=== PATIENT | female | born 1995 | race Caucasian/White ===

== ENCOUNTER 2022-06-02 14:29 | Outpatient (CLI) | payer BC, SELFPAY ==
--- NOTE | 2022-06-02 15:00 | CRLHL7_ITS ---
For Patients: As a result of the Century Cures Act, medical imaging exams and procedure reports are released immediately into your electronic medical record. You may view this report before your referring provider. If you have questions, please contact your health care provider. Indication: Bleeding in the setting of a first-trimester Technique: Transvaginal sonographic evaluation of the pelvis was performed Comparison: None Findings: The uterus is normal in size. There is a single live intrauterine . A crown-rump length measurement of 3 millimeters was noted corresponding to 5 weeks and 6 days and an estimated date of delivery of 01/27/2023. heart rate is 94 which is considered low normal for this early gestational age. Gestational sac size averages 1.8 centimeters and appears normal. There is a 3 millimeter yolk sac that appears normal. No visible implantation bleed or subchorionic hemorrhage. The ovaries are normal size. There is no adnexal mass. The right ovary measures 4.0 x 1.9 x 1.7 centimeters and the left ovary measures 2.3 x 1.0 x 1.5 centimeters. No significant free fluid Impression: 1. Single live intrauterine gestation of 5 weeks and 6 days. Low normal heart rate for this gestational age at 94 beats per minute. 2. No evidence implantation bleed or subchorionic hemorrhage. 3. No adnexal mass or free fluid in the cul-de-sac Dictated by Harjit Pearce MD @ 06/02/2022 3:45:40 PM (Electronically Signed)
== END 2022-06-02 14:30 | disposition home or self-care (01) ==
PROVIDERS: Visit Provider Obstetrics & Gynecology
DX: O20.9 Hemorrhage in early pregnancy, unspecified (principal)
CPT/HCPCS: 76817; 80053; 82150; 83690; 83735; 87086

== ENCOUNTER 2022-06-16 12:45 | Outpatient (CLI) | payer BC, SELFPAY ==
--- NOTE | 2022-06-16 13:00 | CRLHL7_ITS ---
For Patients: As a result of the Century Cures Act, medical imaging exams and procedure reports are released immediately into your electronic medical record. You may view this report before your referring provider. If you have questions, please contact your health care provider. INDICATION: First trimester scan, establish dates. COMPARISON: None. TECHNIQUE: Real-time ross-scale imaging of the pelvis was performed. FINDINGS: Sonographic imaging demonstrates a single living intrauterine gestation. The embryo demonstrates a regular cardiac rate measuring 169 beats per minute. The embryo`s crown-rump length measurement of 1.6 cm corresponds to a gestational age of 8 weeks 0 days with a sonographic due date of 01/26/2023. There is a normal-appearing yolk sac. There are no gross abnormalities noted within the embryo at this early state of development. The gestational sac has a normal appearance. There is a 3.5 x 2.8 x 2.9 cm perigestational hemorrhage. The amount of fluid within the sac appears appropriate for gestational age. The cervix is closed. The myometrium appears normal. The ovaries are of normal size. Corpus luteal cyst right ovary. There are no suspicious fluid collections noted in the cul-de-sac. IMPRESSION: Single living intrauterine with sonographic gestational age 8 weeks 0 days and a sonographic due date 01/26/2023. Left fundal subchorionic hemorrhage measuring 3.5 x 2.8 x 2.9 cm. Dictated by Kadeem Paredes MD @ 06/16/2022 1:40:28 PM (Electronically Signed)
== END 2022-06-16 12:46 | disposition home or self-care (01) ==
PROVIDERS: Visit Provider Advanced Practice Midwife
DX: Z34.91 Encounter for supervision of normal pregnancy, unspecified, first trimester (principal); Z3A.08 8 weeks gestation of pregnancy
CPT/HCPCS: 76817; 84443; 86592; 86703; 86762; 86787; 86803; 86850; 86900; 86901; 87086; 87340; 87491; 87591

== ENCOUNTER 2022-09-08 07:12 | Outpatient (CLI) | payer BC, SELFPAY ==
--- NOTE | 2022-09-08 07:15 | CRLHL7_ITS ---
For Patients: As a result of the Century Cures Act, medical imaging exams and procedure reports are released immediately into your electronic medical record. You may view this report before your referring provider. If you have questions, please contact your health care provider. INDICATION: Evaluate anatomy. COMPARISON: 06/16/2022 TECHNIQUE: Real time ross scale imaging of the fetus was performed as well as color Doppler analysis of the umbilical vessels. FINDINGS: Sonographic imaging demonstrates a single living intrauterine gestation. Fetus demonstrates a regular cardiac rate of 144 beats per minute. Fetus has a variable position. The placenta lies posteriorly without evidence of placenta previa. The edge of the placenta is located 8.3 cm from the internal cervical os. Amniotic fluid volume appears normal. Single deepest vertical pocket: 4.4 cm. The cervix is closed and measures 5.3 cm in length. The composite ultrasound gestational age is calculated at 20 weeks 6 days with an estimated sonographic due date of 01/20/2023. The estimated weight is 390 grams which lies at the 92nd %. The following biometric measurements were obtained: Biparietal diameter: 4.8 cm/20 weeks 4 days 76th% Head circumference: 18.2 cm/20 weeks 4 days 70th% Abdominal circumference: 15.4 cm/20 weeks 4 days 63rd% Femur length: 3.6 cm/21 weeks 4 days 89th% The HC/AC ratio measures: 1.18 range (1.06-1.25) On anatomic survey, there is a normal appearance of the cerebral ventricles, cavum septi pellucidi, cisterna magna and cerebellum. The nose, lips, and facial profile appear normal. The cervical, thoracic and lumbar spine are well visualized and appear normal. Incomplete visualization of the heart views due to position. The diaphragm and stomach appear normal. The kidneys and bladder also appear normal. There is a normal three-vessel cord and cord insertion site. The four extremities appear normal. IMPRESSION: Concordance of clinical and sonographic dating. Incomplete visualization of the heart due to position. Short-term follow-up recommended. The remainder of the anatomic survey is normal. Dictated by Kadeem Paredes MD @ 09/08/2022 8:50:03 AM (Electronically Signed)
== END 2022-09-08 07:13 | disposition home or self-care (01) ==
LOC: US 07:13
PROVIDERS: Visit Provider Advanced Practice Midwife
DX: Z34.92 Encounter for supervision of normal pregnancy, unspecified, second trimester (principal); Z3A.20 20 weeks gestation of pregnancy
CPT/HCPCS: 76805

== ENCOUNTER 2022-09-22 15:01 | Outpatient (CLI) | payer BC, SELFPAY ==
--- NOTE | 2022-09-22 15:00 | CRLHL7_ITS ---
For Patients: As a result of the Century Cures Act, medical imaging exams and procedure reports are released immediately into your electronic medical record. You may view this report before your referring provider. If you have questions, please contact your health care provider. INDICATION: Suboptimal views of heart on the anatomy scan COMPARISON: 09/08/2022 TECHNIQUE: Real time ross scale imaging of the fetus was performed. FINDINGS: Sonographic imaging demonstrates a single living intrauterine gestation. Fetus demonstrates a regular cardiac rate of 145 beats per minute. Fetus has a variable position. The placenta lies posteriorly. Amniotic fluid volume appears normal. Single deepest vertical pocket: 5.5 cm. There is a normal four-chamber heart view and the left and right ventricular outflow tracts appear normal. IMPRESSION: Normal heart structures. Dictated by Kadeem Paredes MD @ 09/25/2022 10:30:00 AM (Electronically Signed)
== END 2022-09-22 15:02 | disposition home or self-care (01) ==
LOC: US 15:01
PROVIDERS: Visit Provider Physician Assistant
DX: Z34.90 Encounter for supervision of normal pregnancy, unspecified, unspecified trimester (principal)
CPT/HCPCS: 76816

== ENCOUNTER 2022-12-29 12:23 | Outpatient (CLI) | payer BC, SELFPAY ==
[2022-12-30 13:02] LABS: Strep B DNA Probe NEGATIVE (Negative)
[2022-12-30 13:13] LABS: Strep B Pen/Amox Allergy No
== END 2022-12-29 12:24 | disposition home or self-care (01) ==
LOC: NFLDREF 12:23
PROVIDERS: Visit Provider Advanced Practice Midwife
DX: Z34.83 Encounter for supervision of other normal pregnancy, third trimester (principal); Z3A.36 36 weeks gestation of pregnancy
CPT/HCPCS: 87081; 87653

== ENCOUNTER 2023-01-12 11:01 | Outpatient (CLI) | payer BC, SELFPAY | END 2023-01-12 11:02 | disposition home or self-care (01) | LOC: NFLDREF 01-13 08:28 | PROVIDERS: Visit Provider Advanced Practice Midwife | DX: Z34.83 Encounter for supervision of other normal pregnancy, third trimester (principal); Z3A.38 38 weeks gestation of pregnancy | CPT/HCPCS: 87086 ==

== ENCOUNTER 2023-01-28 23:20 | Inpatient (IN) | payer BC, SELFPAY ==
[2023-01-28 23:08] VITALS: BP 117/76; PULSE 87; PULSE 90; PULSE 91; TEMP 36.7; O2SAT 93; O2SAT 95
[2023-01-28 23:11] VITALS: BMI 36.0
[2023-01-29] VITALS (26 sets, daily range): BP systolic 90–154; BP diastolic 51–90; PULSE 76–106; RESP 16; TEMP 36.5–36.9; O2SAT 96–100
--- NOTE | 2023-01-29 01:23 | P.LDBA_ITS ---
Subjective History of Present Illness Time Seen by Provider: : Date Seen: 01/29/23 Narrative: Patient is being admitted to Labor and Delivery for active labor. She is a 27 year old at weeks gestation. Her full history and physical was dictated by Beronica Fierro CNM on 01/12/23. Please see this for details. Ashley has been thuan throughout the weekend. They increased in frequency around 1900 last night. She denies leaking fluids or bleeding and has been appreciating good movement. She is anxious on my arrival and has changed in dilation to 6cm. She is in the tub but requesting an epidural. Will place IV and prepare for an epidural. Wants to continue to labor in the tub until anesthesia arrives. She is using nitrous as well. 1. Nausea & Vomiting daily, continue to take Zofran and Phenergan (declines having) as prescribed. Knows to be seen if symptoms worsen. IV fluids received 07/17/22. Reglan script sent. resolved 2. Family history of thyroid disease: TSH 1.660 3. Varicella non-immune Recommend vaccine pp 4. Anxiety- starting to increase slightly at 34wks. Had lots of anxiety in the last weeks of . She may want an IOL around 40 weeks. OB - Problem Based A/P Additional Plan (1) Active labor at term: Status: Acute (2) Pain during labor: Status: Acute (3) Anxiety: Problem details: In high school, has resolved now Increased towards the end of Status: Acute Plan ASSESSMENT:? at 40.3 weeks gestation? GBS negative? Uncomplicated ? ?? PLAN:? 1. Desires water . Consent signed. Hep C negative.? 2. Candidate for analgesia of choice. Planning unmedicated .? 3. Anticipate ? 4. Expectant management at this time.? 5. IV in place if condition changes. 6. Intermittent auscultation after a reactive tracing is obtained.monitoring plan? ? Delivery/Labor/Induction Plan Plan: expectant management OB Result Labs Blood Type: A (+) positive GBS Status: negative OB Exam Physical Exam Vital signs: Temp Pulse Resp BP Pulse Ox 98.1 F 100 16 119/74 95 01/28/23 23:08 01/29/23 01:20 01/29/23 01:20 01/29/23 01:20 01/28/23 23:08 Narrative: Psychiatric:? Alert and oriented x3? HEENT:? Normocephalic, atraumatic? Neck:? Supple without adenopathy or thyromegaly? Lungs:? Clear to auscultation bilaterally? Heart:? Regular rate and rhythm, no murmur, rub or gallop? Abdomen:? Soft, nontender, and gravid? Extremities:? No edema or erythema?Psychiatric:? Alert and oriented x3? Detailed Labor and Delivery Exam Patient Gravid: Yes Dilation (cm): 4 (per RN exam on admit) Effacement (%): 70 Contraction Frequency: Q 2-5 min Tachysystole: No Contraction intensity: Strong/Firm Fetus (Single) Station: -2 Amniotic Membrane Status: intact Heart Rate Baseline: 150 Monitor Accelerations: Present Monitor Decelerations: None Care Home Variability: Moderate (6-25)
[2023-01-29] MEDS: ONDANSETRON 2 MG/ML inj 4 MG IV (01:46)
[2023-01-29] MEDS: LACTATED RINGERS 1000 ML 1,000 ML 925 ML IV (01:46)
[2023-01-29] MEDS: fentaNYL 100 MCG/2 ML inj 30 MCG INTRATHECA (02:25)
--- NOTE | 2023-01-29 02:29 | P.ANBPRC_ITS ---
[facility] Medical History (Updated 01/29/23 @ 02:18 by Falguni Fierro CNM) Anxiety ?F41.9 - Anxiety disorder, unspecified (ICD-10) History of depression ?Z86.59 - Personal history of other mental and behavioral disorders (ICD-10) Migraines ?G43.909 - Migraine, unspecified, not intractable, without status migrainosus (ICD-10) Surgical History History of tonsillectomy and adenoidectomy ?Z90.89 - Acquired absence of other organs (ICD-10) Previous back surgery ?Z98.890 - Other specified postprocedural states (ICD-10) Family History Sister Bleeding disorder Seizure disorder Mother Thyroid disease Maternal Grandmother Ovarian cancer Uterine cancer Other Diabetes Social History What is your current living situation?: I presently have a place to live Problems where you live: no known problems In the past 12 months, utilities in danger of being shut off: no In the past 12 mos, have been you worried that your food would run out before you had money to buy more?: never true In the past 12 mos, the food you bought just didn't last and you didn't have money to buy more?: never true Smoking Status: Never smoker How often does anyone, including family, friends and others, physically hurt you : never How often does anyone, including family, friends and others, insult or talk down to you: never How often does anyone, including family, friends and others, threaten you with harm: never How often does anyone, including family, friends and others, scream or curse at you: never Little interest or pleasure in doing things: not at all Feeling down, depressed, or hopeless: not at all Meds Home Medications and Allergies Home Medications Medication Instructions Recorded Confirmed Type [id number] 120 mcg-dha 25 tab PO 06/02/22 01/26/23 History mg-herb no.293 66.7 mg chew tablet (Alive Premium ) Allergies Allergy/AdvReac Type Severity Reaction Status Date / Time codeine AdvReac Severe Agitated Verified 01/26/23 11:57 gabapentin AdvReac Severe Suicidal Verified 01/26/23 11:57 morphine AdvReac Severe Agitated Verified 01/26/23 11:57 Results Vital Signs Vital Signs: Last Vital Signs Temp 98.1 F 01/28/23 23:08 Pulse 83 01/29/23 02:26 Resp 16 01/29/23 01:20 BP 131/83 01/29/23 02:26 Pulse Ox 99 01/29/23 02:15 Weight: 104.326 kg Height: 170.18 cm Anesthesia Procedures Intrathecal Patient Location: OB Start Time: 02:00 Stop Time: 02:30 Start Date: 01/29/23 Stop Date: 01/29/23 Reason for Block: procedure for pain Patient Position: sitting Performed By: Juan Jose Aguirre Preanesthetic Checklist: risks and benefits discussed, monitors and equipment checked, pre-op evaluation, timeout performed and anesthesia consent Prep: chlorhexidine gluconate Monitoring: blood pressure monitoring, continuous pulse oximetry and heart rate Approach: midline Vertebral Space: lumbar (1-5) Needle Type: Pencan Injection Technique: single-shot (9mg kit marcaine, 30 mcg fentanyl) Needle gauge: 25
[2023-01-29] MEDS: PHENYLEPHRINE 100 MCG/ML SYRINGE IVP (02:39)
[2023-01-29] MEDS: OXYTOCIN 30 unit/500 ML in NS 30 UNIT/500 ML BAG 300 UNIT IVPB (02:48)
--- NOTE | 2023-01-29 03:12 | W.PM.OBVAGDE ---
OB Procedure Vag Delivery Mother Details Mother Details: The patient is a 27 year-old, 4, Para 1, admitted on 01/28/23 at 40.3Days gestation. Patient was admitted for active labor and progressed normally. She did labor in the tub but stared to experience increased anxiety and requested an epidural. She continued to labor in the tub until anesthesia arrived. AROM noted at 0229 with clear fluid. Patient was complete at 0235 and pushing at 0235. of a viable male at 0241 in left tilt in the bed with an adequate epidural. Vertex delivered OA. No nuchal cord or shoulder. Body delivered easily and without incident. Maria Elena pushed for only 6 minutes and in 2 contractions. Baby was caught by the RN with the CNM at the bedside as the CNM was not gloved at the time of delivery. CNM did observe before delivery on the body that there was not a nuchal cord. Infant passed to mothers abdomen with a vigorous cry. Cord was clamped and cut at > 5 minutes. APGARS were 8 at one minute and 8 at five minutes respectively. Mouth was bulb suctioned. Intact placenta with a 3 vessel cord delivered spontaneously at 0245. Fundus firm. 2nd degree identified and repaired in typical fashion. QBL 550 cc. Mother and baby stable; mother plans to breastfeed. Infant weight pending.? : 4 Para: 2 Weeks Gestation: 40.3 Admission Date: 01/28/23 Additional Details Amniotic Membrane Status: intact Amniotic Membrane Rupture Date: 01/29/23 Amniotic Membrane Rupture Time: 02:29 Amniotic Membrane Fluid Description: Clear Analgesia/Anesthesia Type: Epidural Waterbirth: No Pitcoin: Yes (after delivery only) Intrapartal Events: Labor Augmentation (AROM per pt request) and Precipitous Labor <3 Hrs Delivery augmentation: rupture of membranes Labor Onset: 01:00 Complete: 02:35 Pushin:35 Heart: heart tones during second stage were category 2. Variable and prolonged deceleration to the 90's were noted. She did have IV fluids running at the time. Position changes did not change FHR. Baby had a fast descent which was the likely cause. Good variability throughout and there was a return to a baseline of 110-120 at the end of pushing. Delivery Details Delivery Date: 01/29/23 Delivery Time: 02:41 Route of delivery: Gender: Male Infant Viability: Alive; Heart Rate Present Position at Delivery: OA Delivery Details: Delivered over [intact perineum] via [spontaneous] vaginal delivery. Infant was placed on maternal abdomen.? 1 Minute Interval Total Score: 8 5 Minute Interval Total Score: 8 Additional Details Shoulder Dystocia: No Placenta Delivery Time: 02:46 Placental Delivery Description: Spontaneous Delivery repair: Vicryl Procedure Done: Global Blood Loss: 550 Laceration: Perineal - 2nd Degree Episiotomy Description: None Blood Loss Measurement Type: QBL Bakri Used: No Sponge/Need Count Correct: Yes Cord Vessel Description: 3 Vessels (marginal cord insertion) Event Summary Status: Mother and were stable after delivery. Disposition: floor
[2023-01-29] MEDS: IBUPROFEN 600 MG TABLET PO ×2 (09:19→17:42)
[2023-01-29] MEDS: DOCUSATE SODIUM 100 MG CAPSULE PO (09:20)
[2023-01-29] MEDS: ACETAMINOPHEN 500 MG TABLET 1000 MG PO ×2 (14:15→22:01)
[2023-01-30 01:28] VITALS: BP 82/48; PULSE 77; RESP 14; TEMP 36.8; O2SAT 96
[2023-01-30] MEDS: IBUPROFEN 600 MG TABLET PO (05:23)
--- NOTE | 2023-01-30 07:46 | PM.OBDSVD1 ---
DS: Providers Provider Date Seen: 01/30/23 Date of admission: 01/28/23 23:20 Primary care physician: Not a Local Provider Admitting Clinician: Falguni Fierro CNM Attending Physician on discharge: Falguni Fierro CNM Date of Discharge: 01/30/23 DS: Diagnosis Discharge Diagnosis (1) care following vaginal delivery: Status: Acute (2) Lactating mother: Status: Acute (3) Anxiety: Status: Acute Problem details: In high school, has resolved now Increased towards the end of Exam Narrative: Exam Narrative: GENERAL APPEARANCE:? normal affect, alert, no distress? MOOD:? appropriate? CHEST:? clear to auscultation and percussion? HEART:? regular rate and rhythm? ABDOMEN:? soft, non-tender the uterine fundus is 1 cm Below Umbilicus, Midline and is appropriate for the stage of recovery. ? PERINEUM:? mild edema of the perineum, there is a 2nd degree that is healing well.? EXTREMITIES:? normal and no edema? Patient has no complaints? No active bleeding?? Doing well? She is requesting discharge home.? Const: Vital Signs, click to edit/add: Vital Signs - 24 hr 01/29/23 09:00 01/29/23 12:00 01/29/23 16:15 Temperature 97.7 F 98.4 F 97.9 F Pulse Rate [Pulse Oximeter] 94 90 93 Respiratory Rate 16 16 16 Blood Pressure [Le ft Arm] 107/69 103/64 106/71 Pulse Oximetry 96 97 Oxygen Delivery Me thod Room Air Room Air Room Air 01/29/23 20:22 01/30/23 01:28 Temperature 98.2 F 98.3 F Pulse Rate [Pulse Oximeter] 81 77 Respiratory Rate 16 14 Blood Pressure [Le ft Arm] 112/70 82/48 L Pulse Oximetry 96 96 Oxygen Delivery Me thod Room Air Room Air Documenting provider has reviewed patient's vital signs: yes OB - DS: Summary Hospital Course Hospital Course: Patient is a 27year old, G 4 now P 2? admitted on 01/28/23 at 40 Weeks, 2 Days gestation for active labor.? She had an uncomplicated vaginal delivery.? She delivered a viable male .? She is breast feeding and reports things are well.? the patient has done well.? Her pain is well controlled with current medications.? She has no new complaints.? Vitals have been stable. She has remained afebrile. She is voiding without difficulty. She is passing gas and has not had a bowel movement. She is ambulating and denies any dizziness. She is unsure what she is planning for control but she would like to avoid hormones as she has not tolerated them well in the past. She is considering condoms or Caya. She has a history of anxiety and she is worried about this again as she has had an increase in anxiety at the end of . She has use Sertraline in the past and would like to get started on this at this time.??? Peripartum Data delivery method: Vaginal Laceration description: Perineal - 2nd Degree Episiotomy description: None complications: none Gender: Male Infant Discharge Plan: Home Status at Discharge Functional status at discharge: independent ambulation Overall status at discharge: patient is progressing back to baseline Time Spent with Patient Time attestation: Total time spent providing and/or coordinating discharge services: Discharge Plan Discharge Disposition: Home, Self-Care Date of Admission: 01/28/23 23:20 Attending Provider on Discharge: Falguni Fierro Primary Care Provider: Provider,Not a Local Condition: Stable Anticipated Discharge Date/Time: 01/30/23 10:00 Discharge Medications: New docusate sodium 100 mg Capsule 100 mg PO DAILY Qty: 60 0RF Rx Instructions: Take 1-2 tablets daily as needed for constipation. ibuprofen 600 mg Tablet 600 mg PO Q6H PRNQty: 60 0RF sertraline 25 mg tablet 25 mg PO DAILY Qty: 120 2RF Rx Instructions: Take 1 tablet (25mg) or 1 week. You can increase to 2 tablets (50mg) after that if needed. Continued Alive Premium 120 mcg-25 mg- 66.7 mg tablet,chewable PO Discharge Orders: Discharge Order (Routine); Ordered 01/30/23 Ordered By: Falguni Fierro Additional Instructions: Discharge instructions were reviewed with the patient including signs and symptoms of infection and home going medications.? Lifting Restrictions: 20 pounds for 6? weeks? ?? Do not drive while taking narcotic pain meds.? Off Work or School for 6 weeks.? ?? Symptoms to report to doctor:? -Bleeding that saturates more than one pad per hour? -Passing clots larger than the size of a golf ball? -Pain not relieved by prescribed medication? -Fever above 100.4 degrees Fahrenheit? -A foul vaginal odor? -Difficulty in emotions, mood and functions? -Thoughts of hurting yourself and/or ? -Painful, reddened area in your breast? -Any drainage, redness or tenderness in your IV/epidural site? -Severe headache that doesn't improve after taking medications? -Changes in vision, including temporary loss of vision, blurred vision, and/or light sensitivity? -Upper abdominal pain (usually under ribs on the right side)? -Decrease in urination or painful, frequent urinating? -Chest pain? -Shortness of breath? -Tenderness or pain with redness and/swelling in the calf(s) of your leg? ?? Follow Up in clinic in 2 and 6 weeks.? ?? consultation services are available to all mothers and babies for the first year after delivery.? To make an appointment, please call [phone].? Activity Level: Activity as Tolerated Discharge Diet: Regular Follow Up Appointments: Provider,Not a Local [Primary Care Provider] - [facility] [Provider Group] Forms: MyHealth Info Instructions
[2023-01-30 07:52] VITALS: BP 103/71; PULSE 90; RESP 16; TEMP 36.7; O2SAT 97
[2023-01-30 07:54] VITALS: TEMP 36.6
[2023-01-30] MEDS: ACETAMINOPHEN 500 MG TABLET 1000 MG PO (07:54)
[2023-01-30] MEDS: DOCUSATE SODIUM 100 MG CAPSULE PO (07:54)
== END 2023-01-30 12:45 | disposition home or self-care (01) | DRG 560 ==
LOC: OB OUT 01-29 01:44 → OB 01-29 01:44
PROVIDERS: Admitting Provider Advanced Practice Midwife; Visit Provider Advanced Practice Midwife
DX: O99.344 Other mental disorders complicating childbirth (principal); F41.9 Anxiety disorder, unspecified; O70.1 Second degree perineal laceration during delivery; O76 Abnormality in fetal heart rate and rhythm complicating labor and delivery; Z3A.40 40 weeks gestation of pregnancy; Z37.0 Single live birth
CPT/HCPCS: 1967; 99213; A9270; J2371; J2405; J3010; J7120

== ENCOUNTER 2023-05-28 11:13 | Emergency (ER) | payer BC, SELFPAY ==
[2023-05-28 11:16] VITALS: BP 111/78; PULSE 81; TEMP 36; O2SAT 95; BMI 31.3
--- NOTE | 2023-05-28 11:49 | ED_ITS ---
HPI - General Adult General Time Seen by Provider: 11:50 Date Seen: 05/28/23 Chief complaint: Unspecified Complaint, Adult Stated complaint: painful cyst on buttock Time Seen by Provider: 05/28/23 11:21 Source: patient Mode of arrival: ambulatory Limitations: no limitations History of Present Illness HPI narrative: Patient presents with two painful cysts in her right and left gluteal clefts. She started noticing the pain over the weekend, but notes it has progressively increased. Rates her pain as 7/10 when she is sitting on her buttocks. Her pain alleviates when she is standing. The pain is localized and does not seem to radiate elsewhere. She denies any fevers, chills, fatigue, or weakness. Patient has been taking ibuprofen with little relief. She has also tried witch Gillian pads and heating pads with little to no relief. Patient does have a history of hemorrhoids, but denies any bowel changes over the past few days. Of note, patient has a history of back surgery, what she thinks to be a partial laminectomy at T12; however she is unsure. Related Data Home Medications Medication Instructions Recorded Confirmed [id number] 120 mcg-dha 25 tab PO 06/02/22 03/14/23 mg-herb no.293 66.7 mg chew tablet (Alive Premium ) sertraline 25 mg tablet 50 mg PO DAILY 02/14/23 05/28/23 Previous Rx's Medication Instructions Recorded docusate sodium 100 mg capsule 100 mg PO DAILY #60 caps 01/30/23 ibuprofen 600 mg tablet 600 mg PO Q6H PRN #60 tabs 01/30/23 cephalexin 500 mg capsule 500 mg PO TID 7 days #21 caps 05/28/23 Allergies Allergy/AdvReac Type Severity Reaction Status Date / Time codeine AdvReac Severe Agitated Verified 03/14/23 09:54 gabapentin AdvReac Severe Suicidal Verified 03/14/23 09:54 morphine AdvReac Severe Agitated Verified 03/14/23 09:54 Review of Systems Const: Denies: fever, chills or fatigue : Denies: painful urination, urinary frequency, urinary urgency or urinary incontinence Musculo: Denies: back pain, extremity pain or extremity swelling Integ/Breast: Reports: skin tenderness and other (cysts in gluteal cleft); Denies: rash, itching, redness, skin pain, skin swelling, sores, new lesion or changing lesion Neuro: Denies: headache Endo: Denies: fatigue PFSH PFS Medical History (Updated 05/28/23 @ 12:02 by Steve Avila MD) Anxiety ?F41.9 - Anxiety disorder, unspecified (ICD-10) History of depression ?Z86.59 - Personal history of other mental and behavioral disorders (ICD-10) Migraines ?G43.909 - Migraine, unspecified, not intractable, without status migrainosus (ICD-10) Surgical History History of tonsillectomy and adenoidectomy ?Z90.89 - Acquired absence of other organs (ICD-10) Previous back surgery ?Z98.890 - Other specified postprocedural states (ICD-10) Family History Sister Bleeding disorder Seizure disorder Mother Thyroid disease Maternal Grandmother Ovarian cancer Uterine cancer Other Diabetes Social History What is your current living situation?: I presently have a place to live Problems where you live: no known problems In the past 12 months, utilities in danger of being shut off: no In past 12 months, lack of transportation kept you from medical appts, meetings, work, or getting things needed for daily living: no In the past 12 mos, have been you worried that your food would run out before you had money to buy more?: never true In the past 12 mos, the food you bought just didn't last and you didn't have money to buy more?: never true Smoking Status: Never smoker How often do you have a drink containing alcohol: never AUDIT-C Alcohol total score: 0 Non-prescribed substance use: denies use How often does anyone, including family, friends and others, physically hurt you : never How often does anyone, including family, friends and others, insult or talk down to you: never How often does anyone, including family, friends and others, threaten you with harm: never How often does anyone, including family, friends and others, scream or curse at you: never Little interest or pleasure in doing things: not at all Feeling down, depressed, or hopeless: not at all Exam Narrative: Exam Narrative: General: Well nourished, healthy appearing, in no acute distress. HENMT: Normocephalic, atraumatic. Hearing grossly intact bilaterally. Moist mucous membranes. Eye: PERRL. EOMs intact bilaterally. Normal conjunctivae. Neck: Supple, no lymphadenopathy. : There is a 1 cm tender, firm, non-fluctuant, cyst appreciated on the right upper gluteal cleft and 5 mm tender, firm, non-fluctuant, cyst appreciated on the left upper gluteal cleft. No surrounding erythema or overlying warmth. No anal fistulas, fissures, or external hemorrhoids visualized. Extremity: Full ROM. No pedal edema or calf tenderness. Neuro: No focal motor or sensory deficits noticed. Const: Vital Signs, click to edit/add: Vital Signs - 24 hr 05/28/23 11:16 Temperature 96.8 F L Pulse Rate [Pulse Oximeter] 81 Blood Pressure [Ri ght Upper Arm] 111/78 Pulse Oximetry 95 Oxygen Delivery Me thod Room Air Course Vital Signs Vital signs: Initial Vital Signs Temperature 96.8 F L 05/28/23 11:16 Temperature Source Temporal Artery Scan 05/28/23 11:16 Pulse Rate 81 05/28/23 11:16 Blood Pressure 111/78 05/28/23 11:16 Blood Pressure Mean 89 05/28/23 11:16 Blood Pressure Position Standing 05/28/23 11:16 Pulse Oximetry 95 05/28/23 11:16 Oxygen Delivery Method Room Air 05/28/23 11:16 Vital Signs Temperature 96.8 F L 05/28/23 11:16 Pulse Rate 81 05/28/23 11:16 Blood Pressure 111/78 05/28/23 11:16 Pulse Oximetry 95 05/28/23 11:16 Oxygen Delivery Method Room Air 05/28/23 11:16 Temperature 96.8 F L 05/28/23 11:16 Pulse Rate 81 05/28/23 11:16 Blood Pressure 111/78 05/28/23 11:16 Pulse Oximetry 95 05/28/23 11:16 Oxygen Delivery Method Room Air 05/28/23 11:16 Medical Decision Making MDM Narrative Medical decision making narrative: Patient is a 27-year-old female presents with tenderness surrounding her gluteal cleft beginning over the weekend, which has since progressively increased in intensity. Patient has difficulty sitting on her buttocks due to the pain. She has been taking ibuprofen with little relief. She has also tried witch Gillian pads and heating pads with little to no relief. On exam, patient is alert, afebrile, and in no acute distress. There is a 1 cm tender, non-fluctuant, firm cyst appreciated on her R upper gluteal cleft with no surrounding erythema or overlying warmth. There is also a 5 mm tender, non-fluctuant, firm cyst appreciated on her L upper gluteal cleft. There is no purulent drainage and there is no obvious connection between the two cysts. No anal fistulas, fissures, or external hemorrhoids visualized on exam. Bedside US was utilized, which showed two simple, fluid-filled cyst approximately 1 cm (R) and 5 mm (L) in diameter. Based on my physical exam and US findings, I did not feel it was appropriate to I&D these abscesses today. Shared decision making was made with the patient and the plan is to send her home with Cephalexin 500 mg PO tid x 7 days for likely pilonidal cysts. She may continue to use 600 mg ibuprofen q6hrs for pain as needed. Return precautions discussed. Patient and family understand the plan and are in agreement. Medical Records Medical records reviewed: Yes I reviewed the patient's medical records Discharge Plan Discharge Clinical Impression: Pilonidal cyst Patient Disposition: Home, Self-Care Condition: Unchanged Additional Instructions: Take medication as prescribed. Follow up with MD or return if worsening. Prescriptions: New cephalexin 500 mg capsule 500 mg PO TID 7 Days Qty: 21 0RF No Action Alive Premium 120 mcg-25 mg- 66.7 mg tablet,chewable PO sertraline 25 mg tablet 50 mg PO DAILY Patient Comments: patient is now taking the total 50mg Rx Instructions: Take 1 tablet (25mg) or 1 week. You can increase to 2 tablets (50mg) after that if needed. docusate sodium 100 mg Capsule 100 mg PO DAILY Qty: 60 0RF Rx Instructions: Take 1-2 tablets daily as needed for constipation. ibuprofen 600 mg Tablet 600 mg PO Q6H PRNQty: 60 0RF Follow Up/Referrals: Provider,Not a Local [Primary Care Provider] - Stand Alone Forms: [email or web address] Info Instructions
--- NOTE | 2023-05-28 20:47 | ED.NURSE ---
Pt called to ask about rx that was not sent to her pharmacy. Machine Biller had resend script to pt pharmacy.
== END 2023-05-28 12:12 | disposition home or self-care (01) ==
PROVIDERS: Emergency Provider Emergency Medicine Emergency Medical Services
DX: L05.91 Pilonidal cyst without abscess (principal)
CPT/HCPCS: 99283; 99284

== ENCOUNTER 2023-05-31 20:40 | Emergency (ER) | payer BC, SELFPAY ==
[2023-05-31 20:43] VITALS: BP 120/78; PULSE 101; RESP 16; TEMP 36.4; O2SAT 97; BMI 31.3
--- NOTE | 2023-05-31 21:27 | ED.SKABFB ---
HPI - Skin/Abscess/Foreign Bdy General Date Seen: 05/31/23 Chief complaint: Skin/Abscess/Foreign Body Stated complaint: Cyst on tailbone needs attention Time Seen by Provider: 05/31/23 20:58 Source: patient Mode of arrival: ambulatory Limitations: no limitations History of Present Illness HPI narrative: Rate is patient is 27-year-old female presenting to the emergency department for an apparent abscess in her gluteal cleft. She states she is here for 3 days ago an ultrasound was done showing no obvious abscesses she is started on Keflex. She went home but states has been getting worse. She now notices the swelling is much worse with much worse erythema. She now states painful to sit down. She has never had this issue before. Denies any fevers or chills. Related Data Home Medications Medication Instructions Recorded Confirmed [id number] 120 mcg-dha 25 tab PO 06/02/22 03/14/23 mg-herb no.293 66.7 mg chew tablet (Alive Premium ) sertraline 25 mg tablet 50 mg PO DAILY 02/14/23 05/31/23 Previous Rx's Medication Instructions Recorded docusate sodium 100 mg capsule 100 mg PO DAILY #60 caps 01/30/23 ibuprofen 600 mg tablet 600 mg PO Q6H PRN #60 tabs 01/30/23 cephalexin 500 mg capsule 500 mg PO TID #21 caps 05/28/23 cephalexin 500 mg capsule 500 mg PO TID 7 days #21 caps 05/28/23 sulfamethoxazole 800 1 tab PO BID #10 tabs 05/31/23 mg-trimethoprim 160 mg tablet (Bactrim DS) Allergies Allergy/AdvReac Type Severity Reaction Status Date / Time codeine AdvReac Severe Agitated Verified 03/14/23 09:54 gabapentin AdvReac Severe Suicidal Verified 03/14/23 09:54 morphine AdvReac Severe Agitated Verified 03/14/23 09:54 Review of Systems Narrative: Negative unless stated in HPI PFSH PFSH Medical History (Updated 05/31/23 @ 21:33 by Homar Lubin, ) Anxiety ?F41.9 - Anxiety disorder, unspecified (ICD-10) History of depression ?Z86.59 - Personal history of other mental and behavioral disorders (ICD-10) Migraines ?G43.909 - Migraine, unspecified, not intractable, without status migrainosus (ICD-10) Surgical History History of tonsillectomy and adenoidectomy ?Z90.89 - Acquired absence of other organs (ICD-10) Previous back surgery ?Z98.890 - Other specified postprocedural states (ICD-10) Family History Sister Bleeding disorder Seizure disorder Mother Thyroid disease Maternal Grandmother Ovarian cancer Uterine cancer Other Diabetes Social History What is your current living situation?: I presently have a place to live Problems where you live: no known problems In the past 12 months, utilities in danger of being shut off: no In past 12 months, lack of transportation kept you from medical appts, meetings, work, or getting things needed for daily living: no In the past 12 mos, have been you worried that your food would run out before you had money to buy more?: never true In the past 12 mos, the food you bought just didn't last and you didn't have money to buy more?: never true Smoking Status: Never smoker How often do you have a drink containing alcohol: never AUDIT-C Alcohol total score: 0 Non-prescribed substance use: denies use How often does anyone, including family, friends and others, physically hurt you: never How often does anyone, including family, friends and others, insult or talk down to you: never How often does anyone, including family, friends and others, threaten you with harm: never How often does anyone, including family, friends and others, scream or curse at you: never Little interest or pleasure in doing things: not at all Feeling down, depressed, or hopeless: not at all Exam Narrative: Exam Narrative: Const: Well-nourished, Well-developed, in mild distress Eyes: PERRL, no conjunctival injection, and symmetrical lids HENT: Atraumatic external nose and ears. Moist mucous membranes. MSK:Extremities w/o deformity, Normal Active ROM Skin: Warm, Dry. Large amount of cellulitis seen in the gluteal cleft consistent with appears to be a pilonidal cyst. Neuro: Normal Muscle tone, No focal neurological deficits. Psych: Awake, Alert, & Oriented x3. Appropriate mood and affect. Const: Vital Signs, click to edit/add: Vital Signs - 24 hr 05/31/23 20:43 Temperature 97.5 F L Pulse Rate [Pulse Oximeter] 101 H Respiratory Rate 16 Blood Pressure [Ri ght Upper Arm] 120/78 Pulse Oximetry 97 Oxygen Delivery Me thod Room Air Course Vital Signs Vital signs: Initial Vital Signs Temperature 97.5 F L 05/31/23 20:43 Temperature Source Temporal Artery Scan 05/31/23 20:43 Pulse Rate 101 H 05/31/23 20:43 Respiratory Rate 16 05/31/23 20:43 Blood Pressure 120/78 05/31/23 20:43 Blood Pressure Mean 92 05/31/23 20:43 Blood Pressure Position Sitting 05/31/23 20:43 Pulse Oximetry 97 05/31/23 20:43 Oxygen Delivery Method Room Air 05/31/23 20:43 Vital Signs Temperature 97.5 F L 05/31/23 20:43 Pulse Rate 101 H 05/31/23 20:43 Respiratory Rate 16 05/31/23 20:43 Blood Pressure 120/78 05/31/23 20:43 Pulse Oximetry 97 05/31/23 20:43 Oxygen Delivery Method Room Air 05/31/23 20:43 Temperature 97.5 F L 05/31/23 20:43 Pulse Rate 101 H 05/31/23 20:43 Respiratory Rate 16 05/31/23 20:43 Blood Pressure 120/78 05/31/23 20:43 Pulse Oximetry 97 05/31/23 20:43 Oxygen Delivery Method Room Air 05/31/23 20:43 MDM - Skin/Abscess/Foreign Bdy MDM Narrative Medical decision making narrative: Patient is a 27-year-old female presenting for appears to be a pilonidal cyst. She has been on Keflex but has been getting worse. I did a bedside ultrasound showing a 1 cm x 2 cm cyst within the gluteal cleft. This is not near the rectum and I am not concerned about a tract. I&D was performed and patient is feeling better. She will keep on Keflex will add Bactrim. If symptoms are not improving we will have her follow up with General surgery. She is agreeable to this plan. Discharge Plan Discharge Clinical Impression: Pilonidal cyst Patient Disposition: Home, Self-Care Condition: Stable Instructions: Pilonidal Cyst (ED) Additional Instructions: If symptoms are not improving by Sunday follow-up with general surgery. Return to emergency department for new or worsening symptoms Prescriptions: New sulfamethoxazole-trimethoprim [Bactrim DS] 800-160 mg tablet 1 tab PO BID Qty: 10 0RF No Action Alive Premium 120 mcg-25 mg- 66.7 mg tablet,chewable PO sertraline 25 mg tablet 50 mg PO DAILY Patient Comments: patient is now taking the total 50mg Rx Instructions: Take 1 tablet (25mg) or 1 week. You can increase to 2 tablets (50mg) after that if needed. docusate sodium 100 mg Capsule 100 mg PO DAILY Qty: 60 0RF Rx Instructions: Take 1-2 tablets daily as needed for constipation. ibuprofen 600 mg Tablet 600 mg PO Q6H PRNQty: 60 0RF cephalexin 500 mg capsule 500 mg PO TID 7 Days Qty: 21 0RF cephalexin 500 mg capsule 500 mg PO TID Qty: 21 0RF Follow Up/Referrals: Provider,Not a Local [Primary Care Provider] - Stand Alone Forms: [facility] Info Instructions Procedures I/D Type: abscess Site: other (Superior portion of the gluteal cleft) Name of person performing procedure: Homar Lubin Anesthesia I&D: lidocaine 1% Local Anesthetic: lidocaine 1% Amount of anesthesia used (mL): 2 Technique: incised with #11 blade Amount of fluid expressed (mL): 5 Irrigation: Yes Packing used?: iodoform Estimated blood loss (if any): less than 5mls Conclusion: patient tolerated procedure
--- NOTE | 2023-05-31 21:43 | PC.NURSE ---
Naeem and verbal D/C per MD and RN. reinforced d/c instructions with family member at pt. Acknowledges then. Some dsg supplies provided. antibiotics have been called to her pharmacy in [place]. Ambulate out with steady gait.
== END 2023-05-31 22:01 | disposition home or self-care (01) ==
LOC: ED 21:43
PROVIDERS: Emergency Provider Student in an Organized Health Care Education/Training Program
DX: L05.91 Pilonidal cyst without abscess (principal)
CPT/HCPCS: 10060; 10061; 10080; 87070; 87077; 87186; 95992; 99283

== ENCOUNTER 2023-07-19 09:50 | Day surgery (SDC) | payer BC, SELFPAY ==
[2023-07-19] VITALS (14 sets, daily range): BP systolic 85–119; BP diastolic 41–81; PULSE 58–78; RESP 14–20; TEMP 36.2–36.4; O2SAT 95–98; BMI 33.0
--- OUTSIDE RECORDS SUMMARY | 2023-07-19 09:54 | XMS_ITS | Clinical Summary ---
Author Name Unknown Organization [facility] Address [place], [place] [address] Care Team Providers Care Chiseler Head Name Role Phone Jeri Rosales MD Primary Care Provider Allergies Active Allergy Reactions Criticality Noted Date Comments Codeine GI Upset 02/03/2018 Gabapentin Hallucinations High 04/22/2018 Morphine GI Upset 02/03/2018 Medications Medication Sig Dispensed Refills Start Date End Date Status CINNAMEDRINE HCL/ASA/CAFFEINE (MIDOL MAXIMUM STRENGTH ORAL) Take 1 tablet by mouth every 6 hours if needed. 0 Active VITAMIN PLUS LOW IRON 27 mg iron- 1 mg tablet Take 1 tablet by mouth once daily. 0 10/24/2019 Active doxylamine (UNISOM) 25 mg tabletIndications:N on-intractable vomiting with nausea, unspecified vomiting type Take 1 tablet by mouth at bedtime if needed for Sleep. 30 tablet 0 07/26/2020 Active polyethylene glycol (MIRALAX; GLYCOLAX) 17 g powder for solutionIndications :Vaginal delivery Take 17 g by mouth or nasogastric tube once daily. 30 Packet 11 03/12/2021 Active ibuprofen (ADVIL; MOTRIN) 600 mg tabletIndications:V aginal delivery Take 1 Tablet (600 mg) by mouth every 6 hours if needed. Maximum of 3200 mg in 24 hours. 30 Tablet 3 03/12/2021 Active Active Problems Problem Noted Date Diagnosed Date Vaginal delivery 03/10/2021 Labor and delivery indication for care or interv ention 03/09/2021 Encounter for supervision of normal first , unspecified trimester 08/05/2020 Overview: 3.0020, JOSSE 03/16/2021 by LMP/6 wk usn : Fabian Leo positive, Rubella immune Normal anatomy, fundal placenta, girl Headaches Sibling with heart condition - weekly NSTs at 36 weeks Tdap: 12/24/2020 1-hr GTT: 98 GBS negative COVID negative 03/06 Resolved Problems Problem Noted Date Diagnosed Date Resolved Date Elevated liver enzymes 06/24/201403/09 Viral disease 06/24/2014 03/09/2021 Abdominal pain in female patient 06/23/2014 03/09/2021 Splenomegaly 06/23/2014 03/09/2021 Acute constipation 06/23/2014 Lymphadenopathy of right cervical region 06/23/2014 03/09/2021 Encounters Date Type Department Care Team Description 06/04/2023 Lab Requisition [facility] [phone] Unknown, Doctor from Last 3 Months Immunizations Name Administration Dates Next Due DTaP 02/19/2009, 2,12/28/1998,08/17,06/05/1997,1996 Dtap-5 Pertussis Antigens 12/28/1998,07/1997,06/05/1997,08/11 HIB PRP-T (ActHIB,Hiberix) 12/28/1998 Hepatitis A (Peds) 01/22/2013,02/19/2009 Hepatitis B (Peds) 06/29/1997,1996, 996 Hepatitis B, Unspecified 06/29/1997,1996,1 08/14/1995 Human Papilloma Virus Vaccine 12/30/2014 Human Papilloma Virus Vaccin e, Unspecified 12/30/2014 Inactivated Polio Vaccine 03/20/2002,07/1997,06/03/1997,08/11 Influenza Virus, Unspecified 05/27/2014, 05/21/2013,04/08/2012,05/03,03/15/2009,05/11/2008,05/27/2007 ,05/23/2006,03/23/2004,05/07/2002,04/18 Influenza, IIV3 (Age 6-35 mos) 03/15/2009,2007 Influenza, IIV3 (Age >=3 years) 04/08/20 12,05/23/2006,03/23/2004,05/07,05/04/1999 Influenza, IIV4 (=>6mos) MDV 04/15/2015 Influenza,LAIV4 Live Intrana michael (Flumist) 05/27/2007 MMR 03/20/2002,08/17/1997 Meningococcal Vaccine (Menactra) 12/30/2014,09/2008 Meningococcal, Unspecified 02/19/2009 Tdap 02/19/2009 Family History Medical History Relation Name Comments Diabetes Brother IDDM Thyroid Disease Maternal Grandmother Thyroid Disease Mother Thyroid Disease Paternal Grandmother Genetic Sister tuberous sclero sis Relation Name Status Comments Brother Alive Father Alive Maternal Grandmother Mother Alive Paternal Grandmother Sister Alive Social History Tobacco Use Types Packs/Day Years Used Date Smoking Tobacco: Never Smokeless Tobacco: Never Tobacco Cessation:Counseling Given: Yes Alcohol Use Standard Drinks/Week Comments Not Currently 0 (1 standard drink = 0.6 oz pur e alcohol) Sex and Gender Information Value Date Recorded Sex Assigned at Not on file Gender Identity Not on file Sexual Orientation Not on file Obstetrics History Para Term AB IAB SAB Ectopic Multiple Livin g Live Births 3 1 1 2 2 0 1 1 Date Outcome GA Total Labor Labor/2nd/3rd Weight Sex Delivery Anes PTL Lona A1 A5 Name Cl in 2018 SAB 09/05 19 SAB 03/10 Term 39w 1d 9h 14m 8h 46m/0h 22m/0h 06m 3.61 kg (7 lb 15.3 oz) F Vag-Spont Epidu ral Lary ng 7 9 MARQU WHITNEY, BG AGAPITO CHAN rojas, Ruiz Garcia MD Complications:None Delivery Location:Hospital ( [facility]) Last Filed Vital Signs Vital Sign Reading Time Taken Comments Blood Pressure 118/69 03/11/2021 11:00 PM CDT Pulse 79 03/11/2021 11:00 PM CDT Temperature 36.6 ??C (97.9 ??F) 03/11/2021 11:00 PM C DT Respiratory Rate 16 03/11/2021 11:00 PM CDT Oxygen Saturation 98% 03/11/2021 11:00 PM CDT Inhaled Oxygen Concentration - - Weight 98.7 kg (217 lb 9.5 oz) 03/09/2021 7:48 P M CDT Height 170.2 cm (5' 7) 03/09/2021 7:48 PM CDT Body Mass Index 34.08 03/09/2021 7:48 PM CDT Plan of Treatment Health Maintenance Due Date Last Done Comments COVID-19 vaccine series (#1) 1996 Depression screening for age 12+ 2008 Hepatitis C screening for age 18-79 2014 Tetanus booster 02/19/2019 02/19/2009 BMI (ht and wt on same day) for age 18+ 02/21/2020 02/20/2019, 10/03/2018, 08/22/2018, Additional history exists Influenza for age 9-49 02/16/2023 5, 05/27/2014, 05/21/2013, Additional history exists Pap test for age 21-65 03/14/2026 03/14/2023, 2022 Tdap Completed 02/19/2009 HIV for age 15-65 Completed 08/05/2020 Pneumococcal series for age 6-64 Aged Out No longer eligible based on patient's age to complete this topic Procedures Procedure Name Priority Date/Time Associated Diagnosis Comments REFERRAL ID/SUSC,NONURINE Routine 05/31/2023 12:00 PM NETWORK COORDINATOR from Last 3 Months Results * (ABNORMAL) REFERRAL ID/SUSC,NONURINE (05/31/2023 12:00 PM NETWORK COORDINATOR) CULTURE RESULT(A) 06/07/2023 11:13 AM NETWORK COORDINATOR [facility] CULTURE Streptococcus constellatus 06/07/2023 11:13 AM NETWORK COORDINATOR [facility] Other (Buttock) Client Collect / Unknown 05/31/2023 12:00 PM NETWORK COORDINATOR 06/04/2023 7:59 PM NETWORK COORDINATOR Narrative Organism Antibiotic Method Susceptibility Streptococcus constellatus PENICILLIN <=0.06: S Streptococcus constellatus CEFTRIAXONE <=0.12: S Streptococcus constellatus ERYTHROMYCIN <=0.12: S Streptococcus constellatus CLINDAMYCIN <=0.25: S Streptococcus constellatus VANCOMYCIN 0.5: S Streptococcus constellatus AMPICILLIN <=0.25: S Streptococcus constellatus CLARITHROMYCIN S Doctor Unknown MICROBIOLOGY [facility] [address] [place] [address], from Last 3 Months Advance Directives Latest Code Status on File Code Status Date Activated Date Inactivated Comments Full Code 03/09/2021 8:39 PM 03/12/2021 8:36 PM Question Answer Comments Code Status Discussion: Not Discussed Code Status History Code Status Date Activated Date Inactivated Comments Full Code 07/12/2018 10:34 AM 07/13/2018 12:05 PM Full Code 07/12/2018 5:54 AM 07/12/2018 10:34 AM Full Code 10/22/2017 9:01 AM 10/22/2017 6:24 PM Full Code 06/23/2014 8:58 AM 06/24/2014 8:10 PM Care Teams Chiseler Head Relationship Specialty Start Date End Date Jeri Rosales MD PCP - General Family Practice 07/26/20
[2023-07-19 10:13] LABS: Ur HCG Qualitative* Negative (Negative)
[2023-07-19] MEDS: LACTATED RINGERS 1000 ML 1,000 ML 100 ML IV (10:30)
[2023-07-19] MEDS: SODIUM CHLORIDE 0.9 % (FLUSH) 10 ML SYRINGE IVF (10:33)
[2023-07-19] MEDS: CEFAZOLIN 2 GM INJ IVP (12:11)
[2023-07-19] MEDS: BUPIVACAINE 0.25% 30 ML INJECTION (12:20)
--- NOTE | 2023-07-19 12:53 | W.ANESCHARGE ---
Anesthesia Charges Start Date/Time Anesthesia Start Date: 07/19/23 Anesthesia Start Time: 11:55 Stop Date/Time Anesthesia Stop Date: 07/19/23 Anesthesia Stop Time: 12:49
[2023-07-19] MEDS: ONDANSETRON 2 MG/ML inj 4 MG IVP (12:54)
--- NOTE | 2023-07-19 13:00 | W.ANESCHARGE ---
Anesthesia Charges Start Date/Time Anesthesia Start Date: 07/19/23 Anesthesia Start Time: 11:55 Stop Date/Time Anesthesia Stop Date: 07/19/23 Anesthesia Stop Time: 12:49
--- NOTE | 2023-07-19 13:11 | PM.GSPRC ---
Operative Note Date of procedure: 07/19/23 Pre-op diagnosis: Persistent pilonidal sinus Post-op diagnosis: Same Type of Procedure: Incision and debridement pilonidal cyst Indications: The patient is a 28-year-old female who approximately 6 weeks ago presented to the emergency department with pain on her tailbone. Workup revealed an abscess. This was incised in the emergency department and she was to follow up for further management. Her mother has been doing dressing changes to her wound. The wound opening is in the midline and while the wound made good progress initially, she had a persistent draining tract which has failed to heal and has begun to develop epithelialization of the sinus tract. Since she has stalled in the last 3 weeks, after discussion of options she agreed to proceed to the OR for excision of the midline sinus tract with primary closure and opening the pilonidal cyst laterally with curettage (pit picking procedure) in order to get the midline opening to heal and hopefully allow the cyst to heal by secondary intention. Procedure Description: After discussing the risks and benefits of the procedure, the patient signed informed consent.? The operative site was marked and the patient was brought to the operating room and positioned in prone james-knife position with care to pad her pressure points. Anesthetic was then administered. The operative site was then prepped and draped in the usual sterile fashion.? A time-out was then performed. I began by probing the small wound in the midline of the patient's upper gluteal cleft. This tracked to the right in the area of firmness and induration that was palpated in the clinic. This did not appear to track inferiorly or to the left significantly. I placed a Maggie clamp in the wound and made an incision using a skin knife at the tip of the clamp. I then excised an ellipse of skin and dissected down with cautery until the Maggie clamp was encountered. The cavity was examined. This did track down to the coccyx. I then excised the cavity rim down to healthy subcutaneous fat laterally and then, using a knife, excised the epithelial tract surrounding the midline wound in an ellipse. The side of an 11 blade was used to curette the tract leading to the cavity, excising the chronic granulation tissue. The wound was irrigated with copious saline. Hemostasis appeared excellent. The midline wound, measuring 5 mm, was closed with 4-0 Monocryl suture, with care to kalani the edges. The right lateral wound was then packed with iodoform gauze. Bacitracin was applied to the midline wound. ? The patient was then woken and transported to the recovery area in stable condition. ? The patient tolerated the procedure well. Findings: Chronic pilonidal cyst with nonhealing midline wound from prior I&D. Anesthesia: MAC Surgeon: Daisy Navarro MD Estimated blood loss (mL): 5 Condition: stable Disposition: PACU
--- NOTE | 2023-07-19 13:22 | SUR.PHASEI ---
patient met discharge criteria per anesthesia
== END 2023-07-19 14:40 | disposition home or self-care (01) ==
PROVIDERS: Anesthesiology; Visit Provider Surgery
PROC: (CPT 11771; principal; 2023-07-19 11:15)
DX: L05.91 Pilonidal cyst without abscess (principal)
CPT/HCPCS: 11771; 00902; 81025; J0665; J0690; J1100; J1885; J2250; J2405; J2704; J3490; J7120

== ENCOUNTER 2023-12-06 09:46 | Outpatient (CLI) | payer BC, SELFPAY ==
--- OUTSIDE RECORDS SUMMARY | 2023-12-06 09:50 | XMS_ITS | Clinical Summary ---
Author Organization [facility] Address [place], [place] [address] Care Team Providers Care Insulation Helper Name Role Phone Jeri Rosales MD Primary Care Provider Allergies Active Allergy Reactions Criticality Noted Date Comments Codeine GI Upset 02/03/2018 Gabapentin Hallucinations High 04/22/2018 Morphine GI Upset 02/03/2018 Medications Medication Sig Dispensed Refills Start Date End Date Status CINNAMEDRINE HCL/ASA/CAFFEINE (MIDOL MAXIMUM STRENGTH ORAL) Take 1 tablet by mouth every 6 hours if needed. Active VITAMIN PLUS LOW IRON 27 mg iron- 1 mg tablet Take 1 tablet by mouth once daily. 10/24/2019 Active doxylamine (UNISOM) 25 mg tabletIndications:N on-intractable vomiting with nausea, unspecified vomiting type Take 1 tablet by mouth at bedtime if needed for Sleep. 30 tablet 07/26/2020 Active polyethylene glycol (MIRALAX; GLYCOLAX) 17 [...] Lymphadenopathy of right cervical region 06/23/2014 03/09/2021 Immunizations Name Administration Dates Next Due DTaP [...] Outcome GA Total Labor Labor/2nd/3rd Weight Sex Type Anes PTL Lona A1 A5 Name Clin 2018 SAB 0 SAB 2020 Term 39w 1d 9h 14m 8h 46m/0h 22m/0h 06m 3.61 kg (7 lb 15.3 oz) F Vag-S pont Epidur al Livin g 7 9 MARQUA RDT,BG ELISAB ETH Sunny on, Ruiz Garcia MD Complications:None Delivery Location:Hospital ( [facility] ) Last Filed Vital Signs Vital Sign Reading [...] Health Maintenance Due Date Last Done Comments Depression screening for age 12+ 2008 Hepatitis C screening for age 18-79 2014 Tetanus booster 02/19/2019 02/19/2009 BMI (ht and wt on same day) for age 18+ 02/21/2020 02/20/2019, 10/03/2018, 08/22/2018, Additional history exists COVID-19 vaccine series (2022- season) 2023 Influenza for age 9-49 02/17/2024 5, 05/27/2014, 05/21/2013, Additional history exists Pap test for age 21-65 03/14/2026 03/14/2023, 2022 Tdap Completed 02/19/2009 HIV for age 15-65 Completed 08/05/2020 Pneumococcal series for age 6-64 Aged Out No longer eligible based on patient's age to complete this topic Procedures Procedure Name Priority Date/Time Associated Diagnosis Comments HPV THIN PREP Routine 03/14/2023 10:15 AM CDT HIV EXTERNAL Routine 08/05/2020 from Last 3 Months or Most Recently Relevant to Health Maintenance Results * HPV HIGH RISK (03/14/2023 10:15 AM CDT) TYPE 16 Negative Negative 03/16/2023 5:10 PM CDT [facility] TYPE 18 Negative Negative 03/16/2023 5:10 PM CDT [facility] OTHER HIGH RISK TYPES Negative Negative 03/16/2023 5:10 PM CDT [facility] Other (Cervical) 03/14/2023 10:15 AM CDT 03/14/2023 6:06 PM CDT Narrative [facility] - 03/16/2023 5:10 PM CDT HPV types 16, 18, 31, 33, 35, 39, 45, 51, 52, 56, 58, 59, 66 and 68 DNA were undetectable or below the pre-set threshold. Methodology: Collin Karma 4800 HPV Test Jeri [facility] [address] [place] [address], * HIV EXTERNAL (08/05/2020) EXTERNAL HIV Negative [facility] Blood BLOOD SPECIMEN / Unknown Narrative Resulting Agency Comment Notice: This testing was ordered by an outside provider and performed by [facility] @ [place]. The original result report can be found in the patient record as a [facility]Everywhere Lab result from 08/05/2020-03/06/2021. Daisy Odom MD LABORATORY [facility] [address] [place] [address], from Last 3 Months or Most Recently Relevant to Health Maintenance Advance Directives * Full Code (Latest Code Status on File) Date Activated Date Inactivated Comments 03/09/2021 8:39 PM 03/12/2021 8:36 PM Question Answer Comments Code Status Discussion: Not Discussed * Full Code Date Activated Date Inactivated Comments 07/12/2018 10:34 AM 07/13/2018 12:05 PM * Full Code Date Activated Date Inactivated Comments 07/12/2018 5:54 AM 07/12/2018 10:34 AM * Full Code Date Activated Date Inactivated Comments 10/22/2017 9:01 AM 10/22/2017 6:24 PM * Full Code Date Activated Date Inactivated Comments 06/23/2014 8:58 AM 06/24/2014 8:10 PM Care Teams Insulation Helper Relationship Specialty Start Date End Date Jeri Rosales MD PCP - General Family Practice 07/26/20
== END 2023-12-06 09:47 | disposition home or self-care (01) ==
PROVIDERS: PCP Family Medicine; Visit Provider Family Medicine
DX: Z00.00 Encounter for general adult medical examination without abnormal findings (principal); R53.83 Other fatigue; E66.9 Obesity, unspecified; F41.9 Anxiety disorder, unspecified; Z13.6 Encounter for screening for cardiovascular disorders
CPT/HCPCS: 80053; 80061; 82607; 84443

== ENCOUNTER 2024-10-13 12:41 | Outpatient (CLI) | payer BC, SELFPAY ==
--- NOTE | 2024-10-13 13:00 | CRLHL7_ITS ---
For Patients: As a result of the Century Cures Act, medical imaging exams and procedure reports are released immediately into your electronic medical record. You may view this report before your referring provider. If you have questions, please contact your health care provider. OB ULTRASOUND LESS THAN 14 WEEKS, 10/13/2024 CLINICAL HISTORY: Dating and viability. COMPARISON: None. TECHNIQUE: Real time ross scale imaging of the fetus was performed transvaginally. FINDINGS: LMP: 08/19/2024. JOSSE by LMP:Z 05/26/2025. GA: 7 weeks 6 days. IMAGING: TV. CRL: 1.0 cm, 7 weeks 1 day. JOSSE: 05/31/2025. FHR: 138 bpm. GEST SAC: 2.6 cm, appears within normal limits. YOLK SAC: 3.0 mm, appears within normal limits. RIGHT OV: 3.0 x 1.5 x 2.0 cm. LEFT OV: 4.1 x 2.1 x 2.1 cm. CL IMPRESSION: 1 . Single living intrauterine measuring 7 weeks 1 day and sonographic due date 05/31/2025. 2. Incidental corpus luteal cyst left ovary. Kadeem Paredes M.D. Diagnostic Radiologist [email or web address] Transcribed: 3:51 pm DW/Dictated by: Kadeem Paredes MD @ 10/13/2024 3:07:00 PM (Electronically Signed)
== END 2024-10-13 12:42 | disposition home or self-care (01) ==
LOC: US 12:44
PROVIDERS: Visit Provider Advanced Practice Midwife
DX: Z34.91 Encounter for supervision of normal pregnancy, unspecified, first trimester (principal); O34.81 Maternal care for other abnormalities of pelvic organs, first trimester; N83.12 Corpus luteum cyst of left ovary; Z3A.01 Less than 8 weeks gestation of pregnancy
CPT/HCPCS: 76817

== ENCOUNTER 2024-10-13 14:53 | Outpatient (CLI) | payer BC, SELFPAY ==
[2024-10-13 21:04] LABS: Chlamydia DNA Amplified* NOT DETECTED (No Detected); GC DNA Amplified* NOT DETECTED (No Detected)
== END 2024-10-13 14:54 | disposition home or self-care (01) ==
PROVIDERS: Visit Provider Advanced Practice Midwife
DX: Z34.91 Encounter for supervision of normal pregnancy, unspecified, first trimester (principal); Z3A.01 Less than 8 weeks gestation of pregnancy
CPT/HCPCS: 83020; 83021; 84443; 85660; 86592; 86703; 86704; 86706; 86762; 86787; 86803; 86850; 86900; 86901; 87086; 87340; 87491; 87591

== ENCOUNTER 2025-01-06 12:47 | Outpatient (CLI) | payer BC, SELFPAY ==
--- NOTE | 2025-01-06 13:00 | CRLHL7_ITS ---
For Patients: As a result of the Century Cures Act, medical imaging exams and procedure reports are released immediately into your electronic medical record. You may view this report before your referring provider. If you have questions, please contact your health care provider. INDICATION: 2nd trimester anatomical survey. TECHNIQUE: Ultrasound OB pelvis transabdominal. Real-time ross-scale imaging of the fetus was performed as well as color Doppler and spectral Doppler analysis of the umbilical artery. COMPARISON: October 13, 2024. FINDINGS: Intrauterine gestation: Single. heart rate: Regular, 139 bpm. presentation: Breech. Placenta: Anterior, without previa. Cervix: 5 cm. Amniotic fluid: Normal deepest pocket 5 cm. Biometry: Biparietal diameter: 19 weeks 3 days. Head circumference: 19 weeks 3 days. Abdominal circumference: 20 weeks 4 days. Femur length: 20 weeks 1 day. EFW: 340 gm, 59 %. Ultrasound age: 20 weeks 0 days. Ultrasound JOSSE: May 26, 2025. Anatomical Survey: 4 chamber heart: Visualized. Right/Left ventricular outflow tracts: Visualized. Stomach: Visualized. Kidneys: Visualized. Bladder: Visualized. Spine: Visualized. Sacrum: Visualized. 4 extremities: Visualized. Cord insertion: Visualized. 3V cord: Visualized. Face: Visualized. Nose: Visualized. Lips: Visualized. Cerebellum: Visualized. Cisterna Magna: Visualized. Lateral ventricles: Visualized. IMPRESSION: 1. Single viable intrauterine . 2. No intrinsic abnormalities noted on anatomic survey. Dictated by Anthony Lange MD @ 01/09/2025 4:26:34 AM (Electronically Signed)
== END 2025-01-06 12:48 | disposition home or self-care (01) ==
LOC: US 12:48
PROVIDERS: Visit Provider Advanced Practice Midwife
DX: Z34.92 Encounter for supervision of normal pregnancy, unspecified, second trimester (principal); Z3A.20 20 weeks gestation of pregnancy
CPT/HCPCS: 76805

== ENCOUNTER 2025-03-09 10:30 | Outpatient (CLI) | payer BC, SELFPAY | END 2025-03-09 10:31 | disposition home or self-care (01) | LOC: NFLDREF 03-12 15:32 | PROVIDERS: Visit Provider Obstetrics & Gynecology | DX: Z34.90 Encounter for supervision of normal pregnancy, unspecified, unspecified trimester (principal); Z86.39 Personal history of other endocrine, nutritional and metabolic disease | CPT/HCPCS: 84443; 86592 ==

== ENCOUNTER 2025-03-13 08:34 | Outpatient (CLI) | payer BC, SELFPAY | END 2025-03-13 08:35 | disposition home or self-care (01) | LOC: NFLDREF 03-16 07:51 | PROVIDERS: Visit Provider Obstetrics & Gynecology | DX: R89.9 Unspecified abnormal finding in specimens from other organs, systems and tissues (principal); Z34.93 Encounter for supervision of normal pregnancy, unspecified, third trimester | CPT/HCPCS: 82951; 82952 ==

== ENCOUNTER 2025-04-21 10:30 | Outpatient (CLI) | payer BC, SELFPAY ==
--- NOTE | 2025-04-21 10:45 | CRLHL7_ITS ---
For Patients: As a result of the Century Cures Act, medical imaging exams and procedure reports are released immediately into your electronic medical record. You may view this report before your referring provider. If you have questions, please contact your health care provider. OB ULTRASOUND FOLLOW-UP CLINICAL HISTORY: Uterine size/date discrepancy. TECHNIQUE: Real time ross scale imaging of the fetus was performed. Transabdominal imaging performed. FINDINGS: JOSSE by LMP: 05/26/2025. GA: 35 weeks 0 days. Gestation: Single. Cervix: Not visualized. Positioning: Vertex. Amniotic Fluid: 4.7 cm SDP. Placenta: Technique: TA. Placenta Position: Anterior. Dopplers: Heart Rate: 154 bpm. BIOMETRY BPD: 8.4 cm, 34 weeks 0 days. 23.7% HC: 31.4 cm, 35 weeks 1 day. 19.9% AC: 32.9 cm, 36 weeks 5 days. 93.6% FL: 6.9 cm, 35 weeks 3 days. 55.3% FL/AC Ratio: 21.0% HC/AC Ratio: 1.0. EFW: 2809 grams, 6 lb 3 oz. Age by this US: 35 weeks 2 days. JOSSE by this US: 05/24/2025. Percentile by JOSSE: 74.2% IMPRESSION: 1. Sonographic gestational age 35 weeks 2 days and sonographic due date 05/24/2025. Good correlation with dates. Normal interval growth. 2. Estimated weight 74th percentile. Abdominal circumference 94th percentile. Kadeem Paredes M.D. Diagnostic Radiologist [email or web address] Transcribed: 12:52 pm DW/Dictated by: Kadeem Paredes MD @ 04/21/2025 12:11:00 PM (Electronically Signed)
== END 2025-04-21 10:31 | disposition home or self-care (01) ==
LOC: US 10:30
PROVIDERS: Visit Provider Obstetrics & Gynecology
DX: O26.843 Uterine size-date discrepancy, third trimester (principal); Z3A.35 35 weeks gestation of pregnancy
CPT/HCPCS: 76816

== ENCOUNTER 2025-04-27 17:45 | Outpatient (CLI) | payer BC, SELFPAY ==
[2025-04-27] VITALS (42 sets, daily range): BP systolic 93–118; BP diastolic 50–64; PULSE 83–104; RESP 16; TEMP 36.6; O2SAT 93–99
[2025-04-27 18:20] LABS: Appearance Urine Clear (Clear)
[2025-04-27] MEDS: ONDANSETRON 2 MG/ML inj 4 MG IVP (18:37)
[2025-04-27] MEDS: 5 % DEXTROSE/0.9% SOD CHLORIDE 1,000 ML 1000 ML IV (18:40)
[2025-04-27] MEDS: FAMOTIDINE 10 MG/ML inj 20 MG IVP (21:45)
--- NOTE | 2025-04-27 22:12 | PC.OBNST ---
NST Note NST Note Start: 04/27/25 17:47 Freq: ONCE Status: Active Protocol: Document 04/27/25 22:08 ALEJANDRO (Rec: 04/27/25 22:12 ALEJANDRO [id number]) NST Note 6 Para (# of births) 2 EDC 05/26/25 Gestational Age In 35 Weeks & 6 Days Weeks & Days Patient Presented Contractions/cramping,Pain,Nausea and vomiting,Headache with Complaint(s) of If Pain, describe Patient reports abdominal pain 5/10 related to nausea location and vomiting Other Complaints Patient is having a mild headache due to dehydration and has been having nausea and vomiting all day. No vomiting at this time and nausea is improved. Reactive Yes Appropriate for Yes Gestational Age LUCIANO Melvin RN Date 04/27/25 Reactive Yes Appropriate for Yes Gestational Age LUCIANO Duckworth RN Date 04/27/25 OB NST charge Yes Complete NST Note Yes via Write Note The provider's electronic signature indicates the NST is reactive/appropriate for gestational age. *Note to provider: If an addendum is required, open the patient's chart and click on the note under the Nurse/Allied Health tab.
== END 2025-04-27 22:03 | disposition home or self-care (01) ==
LOC: OB OUT 17:45 → OB 17:46
PROVIDERS: Visit Provider Obstetrics & Gynecology
DX: O47.03 False labor before 37 completed weeks of gestation, third trimester (principal); O26.893 Other specified pregnancy related conditions, third trimester; R11.2 Nausea with vomiting, unspecified; R51.9 Headache, unspecified; Z3A.35 35 weeks gestation of pregnancy
CPT/HCPCS: 59025; 81001; 81003; 87086; G0463; J1308; J2405; J7042

== ENCOUNTER 2025-04-30 13:52 | Outpatient (CLI) | payer BC, SELFPAY ==
[2025-05-01 20:05] LABS: Strep B DNA Probe POSITIVE (Negative)
[2025-05-01 20:49] LABS: Strep B Susceptibility Needed? No
== END 2025-04-30 13:53 | disposition home or self-care (01) ==
LOC: NFLDREF 13:52
PROVIDERS: Visit Provider Obstetrics & Gynecology
DX: Z34.93 Encounter for supervision of normal pregnancy, unspecified, third trimester (principal)
CPT/HCPCS: 87081; 87653

== ENCOUNTER 2025-05-16 20:44 | Outpatient (CLI) | payer BC, SELFPAY ==
[2025-05-16 21:05] VITALS: BP 112/68; PULSE 82; PULSE 85; O2SAT 95
[2025-05-16 21:06] VITALS: BP 112/68; PULSE 82; RESP 16; O2SAT 95
--- NOTE | 2025-05-16 21:20 | PC.OBNST ---
NST Note NST Note Start: 05/16/25 20:46 Freq: ONCE Status: Active Protocol: Document 05/16/25 21:19 [facility] (Rec: 05/16/25 21:20 [facility] No Response) NST Note 6 Para (# of births) 2 EDC 05/26/25 Gestational Age In 38 Weeks & 4 Days Weeks & Days Patient Presented Decreased movement with Complaint(s) of Reactive Yes Appropriate for Yes Gestational Age LUCIANO Coronel RNC Date 05/16/25 Reactive Yes Appropriate for Yes Gestational Age LUCIANO Dooley RN Date 05/16/25 OB NST charge Yes Complete NST Note Yes via Write Note The provider's electronic signature indicates the NST is reactive/appropriate for gestational age. *Note to provider: If an addendum is required, open the patient's chart and click on the note under the Nurse/Allied Health tab.
== END 2025-05-16 21:17 | disposition home or self-care (01) ==
LOC: OB OUT 20:45 → OB 20:45
PROVIDERS: Visit Provider Advanced Practice Midwife
DX: O36.8130 Decreased fetal movements, third trimester, not applicable or unspecified (principal); Z3A.38 38 weeks gestation of pregnancy
CPT/HCPCS: 59025; G0463

== ENCOUNTER 2025-05-29 02:51 | Inpatient (IN) | payer BC, SELFPAY ==
[2025-05-29] VITALS (33 sets, daily range): BP systolic 96–134; BP diastolic 56–77; PULSE 68–97; RESP 18–20; TEMP 36.4–36.6; O2SAT 97–100; BMI 35.0
[2025-05-29] MEDS: LACTATED RINGERS 1000 ML 1,000 ML IV (02:55)
[2025-05-29 03:09] LABS: Hematocrit* 35.4 % (33.0-51.0); Hemoglobin* 12.3 gm/dL (12.0-16.0); Immature Granulocytes Abs Auto 0.13 K/uL (0.00-0.30); Immature Granulocytes Pct Auto 1.4 %; Mean Corpuscular HGB Conc 35 gm/dL (32-36); Mean Corpuscular Hemoglobin 32 pg (26-34); Mean Corpuscular Volume 91 fL (80-100); RDW Coefficient of Variation % 13.8 % (11.5-15.5); Red Blood Count* 3.89 m/uL (4.00-5.20); White Blood Count* 9.30 K/uL (4.50-11.00)
[2025-05-29 03:10] LABS: Lymphocytes Absolute Auto 1.70 K/uL (0.90-2.90); Slide Review Reflex No
[2025-05-29] MEDS: AMPICILLIN 2 GM in 0.9 % SODIUM CHLORIDE Mini-bag 100 ML IVPB (03:10)
[2025-05-29] MEDS: ROPIVACAINE 0.2% 100 ml 100 ML 12 MG EPIDURAL (03:27)
[2025-05-29] MEDS: LIDOCAINE 2% (PF) 5 ML VIAL EPIDURAL (03:32)
[2025-05-29] MEDS: ROPIVACAINE 0.2 % PF 10 ML INJ 20 MG EPIDURAL (03:32)
--- NOTE | 2025-05-29 03:41 | PM.ANBPRC ---
[facility] Medical History History of thyroid nodule ?Z86.39 - Personal history of other endocrine, nutritional and metabolic disease (ICD-10) History of dysmenorrhea ?Z87.42 - Personal history of other diseases of the female genital tract (ICD-10) History of vaginal delivery Constipation ?K59.00 - Constipation, unspecified (ICD-10) Anxiety ?F41.9 - Anxiety disorder, unspecified (ICD-10) History of depression ?Z86.59 - Personal history of other mental and behavioral disorders (ICD-10) Migraines ?G43.909 - Migraine, unspecified, not intractable, without status migrainosus (ICD-10) Surgical History History of excision of pilonidal cyst (07/19/23) ?Z98.890 - Other specified postprocedural states (ICD-10) History of lumbar discectomy (07/12/18) ?Z98.890 - Other specified postprocedural states (ICD-10) History of tonsillectomy and adenoidectomy (10/2017) ?Z90.89 - Acquired absence of other organs (ICD-10) Family History Sister Seizure disorder Tuberous sclerosis Von Willebrand disease Maternal Grandmother Ovarian cancer Uterine cancer, Onset Age: 75 Brother Type 1 diabetes mellitus Paternal Grandmother Stroke, Onset Age: 85 Glaucoma Alzheimers disease Sister Von Willebrand disease Mother Thyroid disease Maternal Grandfather Heart disease Social History Narrative: SOCIAL??? Education: Some college??? 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 Partner: , Fabian??? Lives with: and Daughter (Jeffrey) Son (quinten)??? Pets: 1 dog? Abuse: Denies past/present??? Special Diet: Denies?? Ok with a blood transfusion: yes?? Culture or confucianism beliefs: denies? RISK FACTORS??? Exercise Times/wk: Walk, 4/week??? Hx of Depression and/or Anxiety/other mood disorder: Mild anx/dpsn, Would like to start Sertraline prior to delivery, lower dose??? Seat Belt Use: Routinely?? Smoking: Denies past/present??? Alcohol/day: Denies while ??? Caffeine: Not now?? Drug Use: Denies past/present??? Chicken Pox: Had first dose of vaccine MRSA: Denies? FLORINA: 4 PHQ 9: 6??? What is your current living situation?: I presently have a place to live Problems where you live: no known problems In the past 12 months, utilities in danger of being shut off: no In past 12 months, lack of transportation kept you from medical appts, meetings, work, or getting things needed for daily living: no In the past 12 mos, have been you worried that your food would run out before you had money to buy more?: never true In the past 12 mos, the food you bought just didn't last and you didn't have money to buy more?: never true Smoking Status: Never smoker Do you use any of these nicotine containing products: None Second hand tobacco smoke exposure: No How often do you have a drink containing alcohol: never AUDIT-C Alcohol total score: 0 Non-prescribed substance use: denies use Caffeine: No How often does anyone, including family, friends and others, physically hurt you: never How often does anyone, including family, friends and others, insult or talk down to you: never How often does anyone, including family, friends and others, threaten you with harm: never How often does anyone, including family, friends and others, scream or curse at you: never Meds Home Medications and Allergies Home Medications ?Medication ?Instructions ?Recorded ?Confirmed ?Type docusate sodium 100 mg capsule 100 mg PO BID constipation #60 caps 11/05/24 05/26/25 Rx (Colace) vits 168-iron 27 mg-folic 1 cap PO DAILY 12/10/24 05/26/25 History acid 800 mcg-omega3 235 mg capsule (One-A-Day -1) acetaminophen 500 mg tablet 500 mg PO Q6H PRN 02/04/25 05/26/25 History (Tylenol Extra Strength) famotidine 20 mg tablet (Pepcid) 20 mg PO QDAY #30 tabs 02/18/25 05/26/25 Rx sertraline 50 mg tablet 50 mg PO QDAY #90 tabs 05/04/25 05/26/25 Rx ondansetron HCl 4 mg tablet 4 mg PO Q8H PRN nausea/vomiting 05/12/25 05/26/25 History Allergies Allergy/AdvReac Type Severity Reaction Status Date / Time codeine AdvReac Severe Agitated Verified 05/26/25 10:44 gabapentin AdvReac Severe Suicidal Verified 05/26/25 10:44 morphine AdvReac Severe Agitated Verified 05/26/25 10:44 Results Labs Labs: Laboratory Results - last 24 hr 05/29/25 02:53 WBC 9.30 RBC 3.89 L Hgb 12.3 Hct 35.4 MCV 91 MCH 32 MCHC 35 RDW Coeff of Vincent 13.8 Plt Count 176 Neut % (Auto) 70.7 Lymph % (Auto) 18.7 L [place] % (Auto) 7.8 Eos % (Auto) 1.2 Baso % (Auto) 0.2 Neut # (Auto) 6.57 Lymph # (Auto) 1.70 [place] # (Auto) 0.70 Eos # (Auto) 0.11 Baso # (Auto) 0.02 Abs Immat Gran (auto) 0.13 Imm/Tot Granulo (auto) 1.4 Vital Signs Vital Signs: Last Vital Signs Temp 97.7 F 05/29/25 02:52 Pulse 91 05/29/25 03:39 BP 116/75 05/29/25 03:39 Pulse Ox 99 05/29/25 03:40 Weight: 101.6 kg Height: 170.18 cm Anesthesia Procedures Epidural Insertion Patient Location: OB Start Time: 03:00 Stop Time: 03:41 Start Date: 05/29/25 Stop Date: 05/29/25 Reason for Block: procedure for pain Patient Position: sitting Performed By: Mc Saab Preanesthetic Checklist: IV checked, risks and benefits discussed, surgical consent, monitors and equipment checked, pre-op evaluation, timeout performed and anesthesia consent Prep: chlorhexidine gluconate Monitoring: blood pressure monitoring, continuous pulse oximetry and heart rate Approach: midline Vertebral Space: lumbar (1-5) Epidural Technique: ALEXA air Needle Type: Tuohy needle Injection Technique: continuous catheter Needle gauge: 17 Needle Length (cm): 10 cm Needle Insertion Depth (cm): 7 Catheter Gauge: 19 Catheter Type: multi-orifice Catheter at skin depth (cm): 13 Test Dose Result: negative and lidocaine 1.5% with epinephrine 1 to 200,000
--- NOTE | 2025-05-29 05:08 | P.LDBA_ITS ---
Subjective History of Present Illness Date Seen: 05/29/25 Narrative: Patient is being admitted to Labor and Delivery for spontaneous labor. She is a 29 year old at weeks gestation. Her full history and physical was dictated by Dr. Ludwig on 05/06/25. Please see this for details. Active movement. Denies LOF, vaginal bleeding or abnormal vaginal discharge. Have Q4 minutes contractions. Patient strongly desired epidural. Specific Issues/Plans G6 P 2031 : Fabian HPI completed by Dr. Ludwig on 05/06/25 # Seen on Center 04/27 for nausea and vomiting, treated with IV hydration, famotidine and Zofran # Hx Thyroid nodule TSH on first labs 1.650 (10/13/24) # Hx Depression and Anxiety, not currently on meds Would like to start Sertraline prior to delivery, lower dose. [facility]. # Low ferritin * Taking ferrous sulfate QOD # Abnormal 1 hour glucose screen (162) * Normal 3-h GTT 03/13/25 (92/161/147/73) # Recurrent loss Spontaneous abortions X3 # Melanoma, being followed by dermatology. Placenta sent to pathology # Nausea and vomiting in taking Zofran but still vomiting multiple times a day 11/05 added Meclizine, Reglan, Pepcid and Colace pt has gotten IV fluids from private IV fluid business since first visit Pap: (03/14/23) NIL, HPV negative ? Imaginst trimester: (10/09/24) Single live IUP tech report. Awaiting impression Anatomy scan: (01/06/2025) No anomalies, Anterior placenta, SDP 5.5 cm, EFW 59%, BPD 27%, HC 20%, AC 64%, FL 46%. COVID: Declined Flu: Declined TDAP: Declined RSV: Declined 32wk Mental Health: Hep B non-immune. Review at next visit then can remove from list. OB - Problem Based A/P Additional Plan (1) Spontaneous onset of labor: Status: Acute (2) Depression with anxiety: Problem details: Since high school used to be on medication Status: Chronic Plan - Admit for spontaneous labor - Pt comfortable with epidural - AROM 0501, moderate meconium. Pediatric team notified. - Anticipate soon Baseline: 120 bpm, moderate variability, + accel, - decel. Cat I [place]: Q2 minutes OB Exam Physical Exam Vital signs: Temp Pulse BP Pulse Ox 97.7 F 81 120/67 99 05/29/25 02:52 05/29/25 05:08 05/29/25 05:08 05/29/25 03:45 Narrative: Physical exam: General: No acute distress Psych: Alert and oriented x3, full affect HEENT: Normocephalic, atraumatic Lungs: Unlabored breathing Neuro: No focal deficit. Mentating appropriately Pelvic exam: /-1, bulging bag. Patient requested AROM AROM with moderate meconium.
[2025-05-29] MEDS: OXYTOCIN 30 unit/500 ML in NS 30 UNIT/500 ML BAG 300 UNIT IVPB (05:33)
--- NOTE | 2025-05-29 07:06 | W.PM.VAGDEL1 ---
Procedure Delivery date: 05/29/25 Procedure Done: Global Events: Labor Augmentation Intrapartal Events: Labor Augmentation Delivery augmentation: rupture of membranes (0501 ) Delivery monitor: external FHT Route of delivery: Laceration description: Perineal - 2nd Degree Delivery repair: Vicryl Estimated blood loss (mL): 100 Anesthesia type: Epidural Disposition: floor Narrative: The patient is a 29 year-old G 6 P 2 admitted on 05/29/2025 at 40 and 3/7 weeks gestation in spontaneous labor GBS +, ampicillin Labor Analgesia: Epidural Pitocin: For active 3rd stage management only AROM: 05/29 at 0501, with moderate meconium stained fluid Labor onset: 05/29 at 0030 Complete: 05/29 at 0525 Pushin/12 at 0526 heart tones during second stage were II due to variable deceleration during pushing with spontaneous return to baseline. Moderate variability and + deceleration. At 0523 a viable male delivered in vertex OA presentation over intact via spontaneous vaginal delivery. The infant's body was delivered in the usual manner without difficulty. The infant was placed on maternal abdomen. The cord was clamped and cut after a 30-60 second delay. The nose and mouth were bulb suctioned. Infant weight: 4140g. 5 at 1 minute and 8 at 5 minutes. Shoulder dystocia: No. Nuchal cord: No Placenta delivered spontaneously and complete at 0537 with a 3-vessel cord. Placenta examined and noted to be complete. Placenta was sent to pathology due hx of melanoma. The cervix and vagina were inspected for lacerations. Laceration(s): 2nd degree, repaired with 2-0 vicryl in a continuos manner Complications: None Estimated blood loss: 100 mL Cord gases: Obtained due to initial of 5. Sponge and needles counts are correct. Mother and were stable at the time of this note. Infant Gender: Male presentation: vertex Placental Delivery Description: Spontaneous Cord Description: 3 Vessels total score - 1 minute: 5 total score - 5 minute: 8
[2025-05-29] MEDS: IBUPROFEN 600 MG TABLET PO ×3 (07:35→21:25)
[2025-05-29] MEDS: ACETAMINOPHEN 500 MG TABLET 1000 MG PO ×2 (11:05→17:57)
--- NOTE | 2025-05-29 13:13 | PM.ANPOST ---
Post Anesthesia Note Post Anesthesia Note Patient seen: Inpatient Respiratory Status: adequate Cardiovascular Status: adequate Mental Status: baseline Pain: adequate Temp: baseline Anesthetic awareness: N/A Complications: none Follow care: none
[2025-05-29] MEDS: DOCUSATE SODIUM 100 MG CAPSULE PO (18:00)
[2025-05-30] MEDS: ACETAMINOPHEN 500 MG TABLET 1000 MG PO ×3 (02:06→15:37)
[2025-05-30 02:08] VITALS: BP 118/78; PULSE 73; RESP 16; TEMP 36.5; O2SAT 98
[2025-05-30 06:00] LABS: Hemoglobin* 10.8 gm/dL (12.0-16.0)
[2025-05-30] MEDS: IBUPROFEN 600 MG TABLET PO ×2 (06:07→18:02)
[2025-05-30 07:33] VITALS: BP 104/69; PULSE 73; RESP 18; TEMP 36.7; O2SAT 97
[2025-05-30] MEDS: DOCUSATE SODIUM 100 MG CAPSULE PO (08:46)
--- NOTE | 2025-05-30 09:39 | P.DS_ITS ---
DS: Providers Provider Time Seen by Provider: 09:39 Date Seen: 05/30/25 Date of admission: 05/29/25 02:51 Primary care physician: Not a Local Provider Admitting Clinician: Chloe Pappas MD Attending Physician on discharge: Destiny Ludwig MD Exam Narrative: Exam Narrative: Vital signs reviewed and are within normal limits. General: Alert and oriented, no acute distress. Lying in bed, resting. Psych: Appropriate mood and affect Abdomen: Soft, nondistended and nontender. Fundus palpates firm at 1 below umbilicus. Const: Vital Signs, click to edit/add: Vital Signs - 24 hr 05/29/25 12:08 05/29/25 15:30 05/29/25 21:30 Temperature 97.6 F 97.9 F 97.8 F Pulse Rate [Pulse Oximeter] 97 80 72 Respiratory Rate 19 20 18 Blood Pressure [Le ft Arm] 96/63 117/76 107/71 Pulse Oximetry 97 97 97 Oxygen Delivery Me thod Room Air Room Air Room Air 05/30/25 02:08 05/30/25 07:33 Temperature 97.7 F 98.0 F Pulse Rate [Pulse Oximeter] 73 73 Respiratory Rate 16 18 Blood Pressure [Le ft Arm] 118/78 104/69 Pulse Oximetry 98 97 Oxygen Delivery Me thod Room Air Room Air OB - DS: Summary Hospital Course Hospital Course: The patient is a 29 year old G 6 P 3 at 40 weeks gestation that was admitted to the Center on 05/29/25 for spontaneous onset of labor. She had an uncom plicated vaginal delivery. She delivered a viable female . She is breast feeding. the patient has done well. Patti notes she is feeling well this morning. Currently resting in bed. She denies any significant abdominal/pelvic pain. Lochia is small volume, without concerns. She is tolerating p.o. intake without nausea/vomiting. Voiding spontaneously without difficulty. Is passing flatus, bowel movement x1. Ambulates without dizziness/lightheadedness, chest pain or dyspnea. Patti is without difficulty. Bonding well. Patient is hopeful to discharge today. She notes baby is recommended to stay until this evening due to inadequate treatment from GBS prophylaxis. [place] Infant Gender: Male Time Spent with Patient Time attestation: Total time spent providing and/or coordinating discharge services: Discharge Plan Discharge Disposition: Home, Self-Care Date of Admission: 05/29/25 02:51 Primary Care Provider: Provider,Not a Local Condition: Stable Anticipated Discharge Date/Time: 05/30/25 17:30 Discharge Medications: Continued One-A-Day -1 27 mg iron- 800 mcg-235 mg capsule 1 cap PO DAILY acetaminophen [Tylenol Extra Strength] 500 mg tablet 500 mg PO Q6H PRN ondansetron HCl 4 mg tablet 4 mg PO Q8H PRN (Reason: nausea/vomiting) docusate sodium [Colace] 100 mg capsule 100 mg PO BID Qty: 60 0RF Rx Instructions: May start with once a day, increase to twice a day as needed famotidine [Pepcid] 20 mg tablet 20 mg PO QDAY Qty: 30 2RF sertraline 50 mg tablet 50 mg PO QDAY Qty: 90 1RF Discharge Orders: Discharge Order (Routine); Ordered 05/30/25 Ordered By: Jaquelin Ludwig Additional Instructions: Patient verbalized understanding of reviewed discharge instructions. Discharge instructions were reviewed with the patient including signs and symptoms of infection and home going medications Pain control: - Ibuprofen 600 mg every 6 hours as needed for pain - Tylenol 1000 mg every 6 hours as needed for pain Nothing vaginally for 6 weeks: no tampons or intercourse Do not drive while taking narcotic pain medication(s) Off Work or School for 8 weeks Symptoms to report to doctor: * Bleeding that saturates more than one pad per hour * Passing clots larger than the size of a golf ball * Pain not relieved by prescribed medication * Fever above 100.4 degrees Fahrenheit * A foul vaginal odor * Difficulty in emotions, mood, and functions * Thoughts of hurting yourself and/or * Painful, reddened area in your breast * Any drainage, redness, or tenderness in your IV/epidural site * Severe headache that doesn't improve after taking medications * Changes in vision, including temporary loss of vision, blurred vision, and/or light sensitivity * Upper abdominal pain (usually under ribs on the right side) * Decrease in urination or painful, frequent urinating * Chest pain * Shortness of breath * Tenderness or pain with redness and/swelling in the calf(s) of your leg Optional 2-week visit: discuss infant feeding concerns, review control options and screen for anxiety/depression. 6-week visit for an annual exam. consultation services are available to all mothers and babies for the first year after delivery.? To make an appointment, please call [phone]. Follow Up Appointments: Provider,Not a Local [Primary Care Provider, Family Practice] Forms: [employer] Info Instructions
[2025-05-30 15:31] VITALS: BP 100/65; PULSE 87; RESP 20; TEMP 36.8; O2SAT 96
== END 2025-05-30 18:36 | disposition home or self-care (01) | DRG 560 ==
LOC: OB OUT 02:51 → OB 02:51
PROVIDERS: Admitting Provider Obstetrics & Gynecology; Visit Provider Obstetrics & Gynecology
DX: O77.0 Labor and delivery complicated by meconium in amniotic fluid (principal); O99.824 Streptococcus B carrier state complicating childbirth; O70.1 Second degree perineal laceration during delivery; Z37.0 Single live birth; O99.344 Other mental disorders complicating childbirth; F41.8 Other specified anxiety disorders; Z85.820 Personal history of malignant melanoma of skin; Z3A.40 40 weeks gestation of pregnancy
CPT/HCPCS: 01967; 36415; 85018; 85025; 86780; G0463; A9270; J0290; J2795; J7120